=== PATIENT | female | born 1985 | race African-American/Black ===

== ENCOUNTER 2024-06-14 16:16 | Emergency (ER) | payer SELFPAY ==
[2024-06-14 16:26] VITALS: BMI 21.4
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
[2024-06-14 18:22] VITALS: BP 138/100
[2024-06-14 21:05] LABS: HCG, Urine Qualitative Screen Negative
[2024-06-14] MEDS: ROCEPHIN 500 MG IM (21:16)
[2024-06-14] MEDS: VIBRAMYCIN 100 MG PO (21:17)
[2024-06-14] MEDS: FLAGYL 500 MG PO (21:18)
[2024-06-14] MEDS: ZOFRAN ODT (ORALLY DISINTEGRATING) 4 MG PO (21:19)
[2024-06-14 21:33] VITALS: BP 120/80
== END 2024-06-14 21:40 ==
LOC: EMR 16:16
PROVIDERS: Physician Assistant Medical; EMERGENCY PHYSICIAN Emergency Medicine
DX: Z04.41 Encounter for examination and observation following alleged adult rape (principal); S60.511A Abrasion of right hand, initial encounter; X58.XXXA Exposure to other specified factors, initial encounter
CPT/HCPCS: 96372; 99285; 81025

== ENCOUNTER → 2024-10-26 10:18 | Outpatient (REF) | payer OTHER, SELFPAY | LOC: RAD 10:18 | PROVIDERS: ATTENDING PHYSICIAN Student in an Organized Health Care Education/Training Program; FAMILY PHYSICIAN General Practice | DX: N93.9 Abnormal uterine and vaginal bleeding, unspecified (principal) | CPT/HCPCS: 76830; 76856 ==

== ENCOUNTER 2025-03-18 08:52 | Emergency (ER) | payer OTHER, SELFPAY ==
[2025-03-18 08:55] VITALS: BP 108/78
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
[2025-03-18] MEDS: TYLENOL 1000 MG PO (10:19)
== END 2025-03-18 10:40 | disposition home or self-care (01) ==
LOC: EMR 08:52
PROVIDERS: EMERGENCY PHYSICIAN Emergency Medicine
DX: S09.90XA Unspecified injury of head, initial encounter (principal); S16.1XXA Strain of muscle, fascia and tendon at neck level, initial encounter; V59.88XA Occupant (driver) (passenger) of pick-up truck or van injured in other specified transport accidents, initial encounter; F17.200 Nicotine dependence, unspecified, uncomplicated
CPT/HCPCS: 99282